=== PATIENT | female | born 1940 | race Caucasian/White ===

== ENCOUNTER 2020-12-07 08:24 | Inpatient (IN) ==
[2020-12-07] MEDS ORDERED: Acetaminophen 325 MG TABLET PO PRN (12:06)
[2020-12-07] MEDS ORDERED: Naloxone 0.4 MG/ML INJ IVP PRN (12:06)
[2020-12-07] MEDS ORDERED: *HR* HYDROcodone/Acet 5/325 mg TABLET PO PRN (12:06)
[2020-12-07] MEDS ORDERED: Ondansetron 4 MG/2 ML VIAL IVP PRN (12:06)
[2020-12-07 12:22] LABS: Basophils % 0.5 %; Eosinophils # 0.2 K/mcL (0.0-0.6); Eosinophils % 2.6 %; Hematocrit 26.2 % (35.3-44.9); Hemoglobin 8.4 g/dL (11.5-15.4); Immature Granulocytes % 0.3 % (0-4); Lymphocytes # 1.2 K/mcL (0.6-4.6); Lymphocytes % 19.3 %; Mean Corpuscular HGB Conc 32.1 g/dL (31.6-35.5); Mean Corpuscular Volume 93.6 fL (83.0-100.0); Mean Platelet Volume 10.4 fL (9.4-12.4); Monocytes # 0.5 K/mcL (0.0-1.3); Monocytes % 8.2 %; Neutrophils # 4.5 K/mcL (1.6-8.9); Platelet Count 199 K/mcL (140-400); Red Cell Distribution Width 15.1 % (11.5-14.5); Segmented Neutrophils % 69.1 %; White Blood Count 6.4 K/mcL (4.3-11.1)
[2020-12-07 13:03] LABS: INR 1.2; Prothrombin Time 13.5 Seconds (9.4-12.1)
[2020-12-07 13:14] LABS: Chol/HDL Ratio 3.7 (0-4.9); Magnesium 1.6 mg/dL (1.6-2.6); Phosphorous 2.8 mg/dL (2.7-4.5)
[2020-12-07] MEDS ORDERED: 0.9 % Sodium Chloride 250 ML ONE (14:11)
[2020-12-07 15:46] LABS: Bilirubin,Urine Negative (Negative); Blood,Urine Trace (Negative); Clarity,Urine Clear (Clear); Color,Urine Colorless (Yellow); Glucose,Urine (UA) Normal (Normal); Ketones,Urine Negative (Negative); Leukocyte Esterase,Urine Small (Negative); Nitrite,Urine Negative (Negative); Protein,Urine Negative (Neg-Trace); RBC,Urine 0-3 per hpf (0-3); Specific Gravity,Urine 1.009 (1.010-1.025); Urobilinogen,Urine Normal (Normal)
[2020-12-07 15:47] LABS: Mucus,Urine Few per lpf (None-Few); Squamous Epithelial Cell,Urine Few per hpf (None-Few)
[2020-12-07] MEDS ORDERED: SODIUM CHLORIDE/NAHCO3/KCL/PEG 4,000 ML SOLN.RECON PO ONE (17:00)
[2020-12-07 18:20] LABS: Hematocrit 30.5 % (35.3-44.9); Hemoglobin 9.9 g/dL (11.5-15.4)
[2020-12-07] MEDS: Melatonin 3 MG TABLET PO PRN (21:19)
[2020-12-08 06:14] LABS: Hematocrit 28.2 % (35.3-44.9); Hemoglobin 9.4 g/dL (11.5-15.4); Mean Corpuscular HGB Conc 33.3 g/dL (31.6-35.5); Mean Corpuscular Hemoglobin 30.5 pg (28.0-33.3); Mean Corpuscular Volume 91.6 fL (83.0-100.0); Platelet Count 186 K/mcL (140-400); Red Blood Count 3.08 M/mcL (3.82-4.97); Red Cell Distribution Width 15.4 % (11.5-14.5); White Blood Count 6.6 K/mcL (4.3-11.1)
[2020-12-08 06:22] LABS: INR 1.1; Prothrombin Time 13.1 Seconds (9.4-12.1)
[2020-12-08 06:37] LABS: % Iron Saturation 16 % (15-50); BUN/Creatinine Ratio 15 (6-26); Blood Urea Nitrogen 14 mg/dL (8-23); Calcium 8.9 mg/dL (8.6-10.3); Carbon Dioxide 21 mEq/L (23-29); Chloride 111 mEq/L (98-107); Glucose 96 mg/dL (70-105); Iron 46 mcg/dL (50-170); Magnesium 2.1 mg/dL (1.6-2.6); Osmolality,Calculated 286 (280-300); Phosphorous 2.6 mg/dL (2.7-4.5); Potassium 3.6 mEq/L (3.5-5.1); Sodium 138 mEq/L (136-145); Transferrin 200 mg/dL (203-362); eGFR For African Americans > 60 (> 60); eGFR For Non-African Americans 60 (> 60)
[2020-12-08 06:54] LABS: Ferritin 42 ng/mL (10-120)
[2020-12-08 06:59] LABS: Folate 9.8 ng/mL (3.0-16.0)
[2020-12-08] MEDS ORDERED: *HR* Propofol 200 MG/20 ML VIAL IVP ONE (08:04)
[2020-12-08] MEDS ORDERED: Lidocaine -MPF 2% 2 ML VIAL ONE (08:04)
[2020-12-08] MEDS ORDERED: Famotidine 20 MG TABLET PO SCH (09:00)
[2020-12-08] MEDS: allopurinoL 300 MG TABLET PO SCH (09:34)
[2020-12-08] MEDS: Melatonin 3 MG TABLET PO PRN (20:18)
[2020-12-09] MEDS ORDERED: Melatonin 3 MG TABLET PO ONE (00:03)
[2020-12-09] MEDS: allopurinoL 300 MG TABLET PO SCH (08:19)
[2020-12-09] MEDS ORDERED: Famotidine 20 MG TABLET PO SCH (09:00)
[2020-12-09 10:55] VITALS: BP 172/88
== END 2020-12-09 13:08 | disposition home or self-care (01) | DRG 760 ==
LOC: ICNU → 2ANU 12-08 12:03
PROVIDERS: ADMIT Internal Medicine; ATTEND Internal Medicine